=== PATIENT | male | born 1995 | race Caucasian/White ===

== ENCOUNTER 2020-06-22 13:26 | Emergency (ER) | payer OTHER, MEDICAID, SELFPAY ==
[2020-06-22 13:35] VITALS: BP 134/66; PULSE 55; RESP 16; TEMP 36.8; O2SAT 100
--- NOTE | 2020-06-22 14:04 | ED_ITS ---
HPI - Back Pain/Injury General Chief Complaint: Back Pain/Injury Stated Complaint: back pain Source: patient and RN notes reviewed Limitations: no limitations History of Present Illness HPI Narrative: The patient, previously mostly healthy rehabilitation caseworker, presents with right low back pain. Patient states he has a 1 day worsening of several month history of right low back pain that is mild, worse with motion, better at rest. Symptoms began when he was reaching over doing housework; he has previously seen a chiropractor for similar pain that was even worse radiating distally. No radiating pain now, hematuria, frequency/dysuria, flank pain, current/prior injury, numbness/weakness, abdominal pain, V/D/dehydration. He requests work note Related Data Allergies Allergy/AdvReac Type Severity Reaction Status Date / Time No Known Allergies Allergy Verified 06/22/20 13:49 Review of Systems Review of Systems: Narrative: General/Constitutional: No weight loss,fever Eyes: N0: Redness,discharge Ears/Nose/Throat: No: Epistaxis,ear discharge Respiratory: Denies: Hemoptysis Gastrointestinal: No Vomiting, Bleeding-rectal Skin: No Lumps, eruption Neurologic: No Focal Weakness,Sz Hematologic: Denies: Petechiae/Purpura Psychiatric: No: Suicida ideationl All Other Systems: Reviewed and Negative PMFSH Comments At time of signature, agree with nursing past medical, surgical, social and family history. There is no relevant family history pertinent to the presenting complaint Exam Narrative: Exam Narrative: General Appearance: Well appearing, Well nourished EYE: PERRLA, Conjunctiva clear Ears: External ear normal Nose: Normal nose Mouth/Throat: Normal appearing, Normal lips Neck: Supple Respiratory: Airway patent Abdomen: Soft Musculoskeletal: Normal strength (no footdrop, 5/5 : EH L-FHL, gastroc-AT, no saddle weakness) Spine/Back: Paraspinal muscle tender (with mild decreased range of motion; right posterior superior iliac crest) Skin: Normal color Neurological: A&O x3, CN II-XII intact, Normal reflexes (symmetric, 2+ KJ, trace AJ) Psychiatric: Normal mood Course Vital Signs Vital signs: Vital Signs Temperature 98.2 F 06/22/20 13:35 Pulse Rate 55 L 06/22/20 13:35 Respiratory Rate 16 06/22/20 13:35 Blood Pressure 134/66 06/22/20 13:35 Pulse Oximetry 100 06/22/20 13:35 Temperature 98.2 F 06/22/20 13:35 Pulse Rate 55 L 06/22/20 13:35 Respiratory Rate 16 06/22/20 13:35 Blood Pressure 134/66 06/22/20 13:35 Pulse Oximetry 100 06/22/20 13:35 Discharge Plan Discharge Clinical Impression: Muscle spasm of back Strain of lumbar region Qualifiers: Encounter type: initial encounter Qualified Code(s): S39.012A - Strain of muscle, fascia and tendon of lower back, initial encounter Patient Disposition: Home, Self-Care Condition: Stable Instructions: Back Pain (ED) Prescriptions: New acetaminophen-codeine 300-30 mg tablet 1 tablet PO HS PRN (Reason: pain) Qty: 10 RF: 0 tramadol 50 mg tablet 50 mg PO TID PRN (Reason: pain) Qty: 15 RF: 1 Follow-up/Referrals: UNKNOWN,DOCTOR [Primary Care Provider] - Stand Alone Forms: Work/School Release IP
== END 2020-06-22 14:02 | disposition home or self-care (01) ==
PROVIDERS: Emergency Provider Emergency Medicine
DX: M62.830 Muscle spasm of back (principal); S39.012A Strain of muscle, fascia and tendon of lower back, initial encounter; X50.9XXA Other and unspecified overexertion or strenuous movements or postures, initial encounter
CPT/HCPCS: 99213; G0463

== ENCOUNTER 2025-02-21 13:20 | Emergency (ER) | payer BC, SELFPAY ==
[2025-02-21 13:26] VITALS: BP 142/78; PULSE 56; RESP 18; TEMP 36.8; O2SAT 100
--- NOTE | 2025-02-21 13:26 | ED.GENADULT ---
HPI - General Adult General Chief complaint: Allergic Reaction Stated complaint: Poison Rama Time Seen by Provider: 02/21/25 13:26 Source: patient Mode of arrival: ambulatory Limitations: no limitations History of Present Illness HPI narrative: 29-year-old male presented for complaint of itchy rash to both arms, abdomen, groin, left eye. Onset 3 days. Rash started after cleaning leads in the yard. Endorses he is allergic to poison rama. Has applied calamine lotion and took a benadryl last night. Denies lip, tongue, or throat swelling, shortness of breath or wheezing. Denies changes to soap, detergent, lotion, or any other exposures. No one else in the house or any contacts with similar symptoms. Related Data Allergies Allergy/AdvReac Type Severity Reaction Status Date / Time No Known Allergies Allergy Verified 06/22/20 13:49 Review of Systems Review of Systems: CONSTITUTIONAL: Denies body aches, fever, chills, or sweats. EYES: Denies visual changes, redness, or discharge. ENT: Denies rhinorrhea, congestion CARDIOVASCULAR: Denies chest pain, palpitations, or edema. RESPIRATORY: Denies cough or dyspnea. GASTROINTESTINAL: Denies abdominal pain, nausea, vomiting, or diarrhea. SKIN: reports rash MUSCULOSKELETAL: Denies back pain, joint pain, or myalgia. NEUROLOGIC: Denies headache, numbness, tingling, or weakness. PMFSH Comments At time of signature, I have reviewed and agree with nursing past medical, surgical, social and family history unless otherwise noted. Please see nursing chart for further information. There is no relevant family history pertinent to the presenting complaint Exam Narrative: GENERAL: Well-appearing HEAD: Normocephalic, atraumatic. EYES: conjunctivae clear, and EOMI. ENT: Mucous membranes moist. Oropharynx without edema, erythema or lesions. NECK: Supple. No lymphadenopathy CHEST: Clear to auscultation. HEART: Regular rate and rhythm. SKIN: Warm, dry. vescicular rash on an erythematous base to bilateral forearms and abdomen, small area to the left eye, and groin consistent with contact dermatitis. NEURO: Alert and oriented x3. Course Course Emergency Course: Patient is aware of diagnosis, understands and agrees to treatment plan. Anticipatory guidance given. Patient agrees to follow-up as directed and is aware of reasons to seek care at the emergency department. Portions of this record may have been created with voice recognition software Level of Care: Express Care Visit Vital Signs Vital signs: Reviewed Medical Decision Making MDM Narrative Medical decision making narrative: Discussed physical exam findings and reviewed prescriptions. Advised supportive measures and signs/symptoms to go to the ER. Pt is appropriate for outpt treatment and f/u. Differential Diagnosis Differential Diagnosis: Viral exanthema, contact dermatitis, allergic dermatitis, eczema, urticaria, insect bites, impetigo, tinea, folliculitis Discharge Plan Discharge Clinical Impression: Contact dermatitis Patient Disposition: Home Condition: Stable Instructions: Antibiotic Form, Poison Rama (ED) Additional Instructions: Take steroids and Pepcid as directed. Benadryl every 8 hours as needed for itching, or you can take Zyrtec/Claritin burning to package directions for itching You can apply over the counter anti-itch cream as needed Cool compresses to the sites of itching, avoid hot water. Avoid scratching to reduce the risk of infection Follow up with your primary care provider as needed in 1 week Go to the ER for worsening symptoms or concerns (lip, tongue, throat swelling/itching, trouble breathing etc) Patient Language: Persian Prescriptions: New famotidine [Pepcid] 40 mg tablet 40 mg PO DAILY Qty: 10 0RF prednisone 20 mg tablet 20 mg PO DAILY Qty: 18 0RF Rx Instructions: take 3 tablets daily for 3 days, then 2 tablets daily for 3 days then 1 tablet daily for 3 days No Action acetaminophen-codeine 300-30 mg tablet 1 tablet PO HS PRN (Reason: pain) Qty: 10 0RF Follow-up/Referrals: PHYSICIAN,FINANCIAL SALES ASSOCIATE [Primary Care Provider, Internal Medicine] Time of Disposition: 13:34
== END 2025-02-21 13:37 | disposition home or self-care (01) ==
PROVIDERS: Emergency Provider Nurse Practitioner Family
DX: L25.9 Unspecified contact dermatitis, unspecified cause (principal)
CPT/HCPCS: 99213; G0463